=== PATIENT | male | born 1955 | race Caucasian/White ===

== ENCOUNTER → 2017-09-01 | Outpatient (CLI) | payer BC ==
--- NOTE | 2017-09-02 14:05 | EKG ---
Date Performed: 09/01/2017 Time Performed: 14:19:12 PTAGE: 61 years EKG: Sinus rhythm PATTERN CONSISTENT WITH PULMONARY DISEASE LEFT ANTERIOR FASCICULAR BLOCK ABNORMAL ECG NO PREVIOUS TRACING DOCTOR: Kristopher Villalta Interpretating Date/Time 09/02/2017 14:02:40
== END ==
LOC: PHPRE 13:52
PROVIDERS: ATTEND Ophthalmology
DX: Z01.810 Encounter for preprocedural cardiovascular examination (principal); H26.9 Unspecified cataract
CPT/HCPCS: 93005

== ENCOUNTER → 2017-09-08 | Day surgery (SDC) | payer BC ==
--- NOTE | 2017-09-02 12:18 | MH ---
cc: [facility], SHEILA ZAMORA DATE OF ADMISSION 09/08/2017 [place] Visit Search.Admit Date ADMISSION DIAGNOSIS Cataract, right eye. HISTORY OF PRESENT ILLNESS This 61-year-old white male is coming through [facility] for the purpose of a lens extraction of the right eye with intraocular lens implant under local anesthesia. He has noted decreasing visual acuity interfering with his daily activities and elected to have the above procedure. His best-corrected visual acuity in room light is 20/70 in the right eye and 20/20 -1 in the left eye. PAST MEDICAL HISTORY The patient has a history of cholesterol problems and hypertension. PAST SURGICAL HISTORY There is no past surgical history. MEDICATIONS He is on no daily medications. ALLERGIES He has no known allergies. SOCIAL HISTORY Does not smoke. Does drink alcohol. FAMILY HISTORY Positive for mother with cataract. REVIEW OF SYSTEMS HEAD: Patient denies severe headaches, dizziness or recent head injury. EARS: Patient denies hearing loss, ear pain, discharge or ringing in the ears. NOSE: Patient denies nasal discharge, obstruction or frequent colds. MOUTH AND THROAT: Patient denies soreness of the mouth or tongue, bleeding gums, trouble swallowing, changes in voice or sore throat. NECK: Patient denies neck pain or swelling, limitation of neck movement or neck injury. CARDIOPULMONARY SYSTEM: Patient denies shortness of breath, orthopnea, chronic cough, sputum production, hemoptysis, chest pain, wheezing, palpitations or light-headedness. GI SYSTEM: Patient denies poor appetite, nausea, vomiting, abdominal pain, ulcers, hemorrhoids or change in bowel habits. SYSTEM: The patient denies urinary frequency, dysuria, change in urine color. NERVOUS SYSTEM: Patient denies convulsions, vertigo, stroke, numbness or weakness. PHYSICAL EXAMINATION VITAL SIGNS: Blood pressure 118/70, pulse 88, respirations 16. HEAD: Normocephalic, atraumatic. NOSE: Without rhinorrhea. THROAT: Clear. NECK: Supple. CHEST: Clear. HEART: Regular rhythm. ABDOMEN: Without tenderness. EXTREMITIES: Without edema. NEUROLOGIC: Within normal limits. MENTAL STATUS: Within normal limits. EYE EXAM: The patient's best-corrected visual acuity in room light is 20/70 in the right eye and 20/20 -1 in the left eye. Visual villegas are full to confrontation testing. Extraocular muscle exam reveals full versions with orthophoria at distance and near. Pupils are 3 mm, equal, round, and reactive to light without afferent defect. Anterior segment examination reveals corneal arcus present bilaterally. A small pterygium is noted greater in the left eye than the right. Nuclear sclerotic cataract is present in the right eye with early posterior subcapsular cataract as well. A milder nuclear sclerotic cataract is also noted in the left eye. Intraocular pressure is 20 in the right eye and 21 in the left by applanation tonometry. Dilated fundus exam revealed sharp disks with cup-to-disk ratio of 0.3 bilaterally. The macula is clear bilaterally. A posterior vitreous detachment is present bilaterally. IMPRESSION 1. Cataract, right eye greater than left. 2. Posterior vitreous detachment, both eyes. 3. Mild pterygium, left eye greater than the right. 4. Corneal arcus. PLAN Lens extraction of the right eye with intraocular lens implant under local anesthesia through [facility]. The patient has been cleared medically. He has been counseled as to the risks, benefits and alternatives and elected to proceed. I feel that cataract surgery will improve the quality of life and activities of daily living in this patient. MD SMITH Castellon/JOSE /11:17 AM /11:24 AM Visit #: [place] Visit Search.Visit Number
[~2017-09-08] VITALS: Ht 188 cm; Wt 86.4 kg
[~2017-09-08] MED LIST: ACETYLCHOLINE CHL OPHT SOLN 1:100 2 ML VIAL ONE; CHLORHEXIDINE GLUCONATE 2 % 1 PACK (2 CLOTHS) TOPICAL PRN; CYCLOPENTOLATE HCL 1% OPHT SOLN 2 ML BTL ONE; DICLOFENAC SOD 0.1% OPHT SOLN 2.5 ML BTL ONE; EPINEPHrine HCL PF/SF (1:1000) 1 MG/ML AMP I-OCULAR ONE; GATIFLOXACIN 0.5% OPHT SOLN 2.5 ML BTL ONE; HYALURONIDASE/LIDOCAINE/BUPIVACAINE 5 ML SYR ONE; HYALURONIDASE/LIDOCAINE/BUPIVACAINE 5 ML SYR RIGHT EYE ONE; LACTATED RINGER'S 1000 ML IV PRN; METOPROLOL TARTRATE 25 MG TAB PO PRN; PHENYLEPHRINE HCL 2.5% OPTH SOLN 2 ML BTL ONE; PILOCARPINE HCL 2% OPHT SOLN 15 ML BTL ONE; POVIDONE IODINE 5% (ANTISEPSIS KIT) 4 APPLICATIONS EACH NARE PRN; PROPARACAINE HCL 0.5% OPHT SOLN 15 ML BTL ONE; PROPARACAINE HCL 0.5% OPHT SOLN 15 ML BTL RIGHT EYE ONE; PROPOFOL 200 MG/20 ML AMP ONE; SODIUM CHLORID 0.9% 500 ML IV PRN; TETRACAINE 0.5% OPTH SOLN 4 ML BTL ONE; TOBRAMYCIN/DEXAMETHASONE OPTH OINT 3.5 GM TUBE ONE; TROPICAMIDE 1% OPHT SOLN 15 ML BTL ONE; VISCOAT OPHT IRRIG SOLN 0.75 ML SYRINGE ONE
[2017-09-08] MEDS: TROPICAMIDE 1% OPHT SOLN 15 ML BTL RIGHT EYE SCH ×4 (06:32→06:41)
[2017-09-08] MEDS: PHENYLEPHRINE HCL 2.5% OPTH SOLN 2 ML BTL RIGHT EYE SCH ×4 (06:32→06:41)
[2017-09-08] MEDS: GATIFLOXACIN 0.5% OPHT SOLN 2.5 ML BTL RIGHT EYE SCH ×4 (06:32→06:41)
[2017-09-08] MEDS: DICLOFENAC SOD 0.1% OPHT SOLN 2.5 ML BTL RIGHT EYE SCH ×4 (06:32→06:41)
[2017-09-08] MEDS: CYCLOPENTOLATE HCL 1% OPHT SOLN 2 ML BTL RIGHT EYE SCH ×4 (06:32→06:41)
[2017-09-08 06:37] VITALS: PULSE 61
[2017-09-08 07:06] VITALS: PULSE 70
[2017-09-08 08:21] VITALS: TEMP 98.4
[2017-09-08 08:45] VITALS: BP 136/78; PULSE 91; RESP 16; O2SAT 99
--- NOTE | 2017-09-08 10:47 | MP ---
cc: SHEILA JAING DATE OF SURGERY: 09/08/2017 PREOPERATIVE DIAGNOSIS Cataract, right eye. POSTOPERATIVE DIAGNOSIS Cataract, right eye. OPERATION Extracapsular cataract extraction with posterior chamber intraocular lens implant by phacoemulsification, right eye. SURGEON Sheila Jiang M.D. ANESTHESIA Local. COMPLICATIONS None. INDICATIONS See history and physical previously dictated. OPERATIVE PROCEDURE The patient had adequate retrobulbar and eyelid blocks administered in the holding area and was brought to the operating room. The right eye was prepped and draped in the usual sterile ophthalmic manner. A lid speculum was inserted in the right eye. A 4-0 silk bridle suture was placed through the conjunctiva near the superior rectus muscle and it was tagged to the drape. A fornix-based conjunctival flap was prepared spanning approximately 5 mm in width. Hemostasis was obtained with wet-field cautery. A 3.5 mm groove was made 1 mm from the limbus and dissected up to the limbus in the form of a scleral pocket incision. A stab incision was then made at the 2 o'clock position. Viscoelastic was injected into the anterior chamber. The anterior chamber was entered with a 2.75 mm keratome through the scleral pocket incision. A 360 degree continuous curvilinear capsulorrhexis was then performed. Hydrodissection was utilized to divide the nucleus into inner and outer components and to separate the cortex from the capsule. Phacoemulsification was then utilized to remove the nucleus. The outer nuclear layer was removed with irrigation and aspiration and short bursts of ultrasound as necessary. The cortex was removed with the irrigation/aspiration handpiece. The posterior capsule was polished with the capsule polisher. Viscoelastic was injected into the capsular bag. The intraocular lens was inspected and found to be in good condition. The lens utilized was a Lico, model number SA60AT with a power of +21.5 diopters. The lens was inserted into the capsular bag. The viscoelastic in the anterior chamber was then removed with the irrigation-aspiration handpiece. Viscoelastic was also removed from beneath the intraocular lens. The anterior chamber was filled with Miochol-E through the stab incision and pressurized. The wound was checked for leaks at this pressure and normalized pressure and there were none. The 4-0 bridle suture was removed. The conjunctival flap was brought down over the wound and secured with cautery. Pilocarpine 2% eye drops were instilled topically. The lid speculum was removed. TobraDex ophthalmic ointment was applied. The eye was double patched and shielded. The patient tolerated the procedure well and left the Operating Room in satisfactory condition. SheilaMD SMITH Langley/HAKEEM /8:23 AM /10:36 AM
== END | disposition home or self-care (01) ==
LOC: PHSDC 06:08
PROVIDERS: ATTEND Ophthalmology
DX: H25.811 Combined forms of age-related cataract, right eye (principal); H43.813 Vitreous degeneration, bilateral; H11.003 Unspecified pterygium of eye, bilateral; H18.419 Arcus senilis, unspecified eye; I10 Essential (primary) hypertension
CPT/HCPCS: 00142; 66984; J0171; J7040; V2632